=== PATIENT | male | born 2000 | race Two or more races ===

== ENCOUNTER 2021-02-07 20:03 | Emergency (ER) | payer SELFPAY ==
[~2021-02-07] VITALS: Ht 177.8 cm; Wt 59.0 kg
[2021-02-07 21:30] VITALS: BP 119/87
[2021-02-07] MEDS ORDERED: diphenhdrAMINE HCL 50 MG/1 ML VL IM ONE (21:30)
[2021-02-07] MEDS ORDERED: methylPREDNISolone SOD SUCC 125 MG/2 ML VL IM ONE (21:30)
== END 2021-02-07 22:23 | disposition home or self-care (01) ==
LOC: ER 20:14
DX: R21 Rash and other nonspecific skin eruption (principal)
CPT/HCPCS: 96372; 99284; J1200; J2930